=== PATIENT | male | born 1985 | race Asian ===

== ENCOUNTER 2022-10-25 22:45 | Outpatient (CLI) | payer MEDICARE, MEDICAID, SELFPAY | END 2022-10-25 22:46 | disposition home or self-care (01) | LOC: AMB 10-28 23:34 | PROVIDERS: PCP Family Medicine; Visit Provider Emergency Medicine Emergency Medical Services | DX: F29 Unspecified psychosis not due to a substance or known physiological condition (principal) | CPT/HCPCS: A0425; A0429 ==

== ENCOUNTER 2023-07-17 22:58 | Emergency (ER) | payer MEDICARE, MEDICAID, SELFPAY ==
[2023-07-17 23:04] VITALS: BP 112/69; PULSE 87; RESP 20; TEMP 36.7; O2SAT 99; BMI 24.2
--- NOTE | 2023-07-17 23:24 | ED.EAR ---
HPI - Ear Problem General Chief complaint: Ear/Nose/Throat Problem Stated complaint: pain in ear, possible puncture Time Seen by Provider: 07/17/23 23:04 History of Present Illness HPI Narrative: This 38-year-old male comes in with possibility of a injury to his tympanic membranes. He states that he was wrestling with a friend and he himself decided to put toothpicks in each ear canal. He reports pain in his ears, right greater than left. He does not report any drainage from either ear. Related Data Home Medications Medication Instructions Recorded Confirmed aripiprazole lauroxil 882 mg/3.2 882 mg IM Q4W 06/18/23 07/17/23 mL suspension, ext.rel. IM syringe (Aristada) cetirizine 10 mg tablet 10 mg PO QDAY PRN 06/18/23 07/17/23 cholecalciferol (vitamin D3) 25 25 mcg PO QDAY 06/18/23 07/17/23 mcg (1,000 unit) capsule clonidine HCl 0.2 mg tablet 0.2 mg PO BID 06/18/23 07/17/23 lamotrigine 200 mg tablet 200 mg PO QDAY 06/18/23 07/17/23 (Lamictal) pantoprazole 40 mg tablet,delayed 40 mg PO QDAY 06/18/23 07/17/23 release trazodone 50 mg tablet 50 mg PO QHS PRN 06/18/23 07/17/23 desvenlafaxine succinate 50 mg 50 mg PO DAILY 07/17/23 07/17/23 tablet,extended release 24 hr Allergies Allergy/AdvReac Type Severity Reaction Status Date / Time No Known Drug Allergies Allergy Verified 07/17/23 23:09 Review of Systems Status of ROS: Reports: 10 or more systems reviewed and unremarkable except as noted in History and below Narrative: Constitutional: No fevers, no weight gain or loss. Eyes: No discharge. No vision changes. HENT: No congestion, no sore throat. Ear pain, right greater than left. Cardiovascular: No chest pain, no palpitations. Respiratory: No shortness of breath, no wheezes, no cough. Gastrointestinal: No abdominal pain, no vomiting, no diarrhea. Genitourinary: No dysuria, no hematuria. Musculoskeletal: Normal range of motion. Skin: No rashes, no pruritis. Neurological: No dizziness, weakness, sensory change, speech change. Endo/Heme/Allergies: No bruising or bleeding. No polydipsia. Pysch: no suicidality, no anxiety, no insomnia. All other systems reviewed and are negative. PFSH PFSH Social History Little interest or pleasure in doing things: several days Feeling down, depressed, or hopeless: several days Exam Narrative: Exam Narrative: Constitutional: Well-developed, well-nourished, no acute distress. HEENT: Normocephalic, atraumatic. Left tympanic membrane is intact but has dullness and possibility of infection. Right tympanic membrane is ruptured due to trauma. There is no active bleeding or drainage. Neck: Normal range of motion. Nontender. Supple. Heart: Regular. No murmurs. Normal rate. Intact distal pulses. Lungs: Clear to auscultation. No chest discomfort. No wheezes, rhonchi, or rales. Abdomen: Normal bowel sounds. Nontender. No rebound tenderness. Genitalia: Deferred. Back: No midline tenderness. Normal range of motion. Extremities: Normal range of motion. No injury. Skin: Intact. No rash. Warm. No erythema or pallor. Neurologic: No altered sensation. No weakness. Alert and oriented. Psychiatric: No suicidality. No anxiety or depression. No insomnia. Nursing notes and vitals signs are reviewed. Const: Vital Signs, click to edit/add: Vital Signs - 24 hr 07/17/23 23:04 Temperature 98.0 F Pulse Rate [Right Pulse Oximeter] 87 Respiratory Rate 20 Blood Pressure [Ri ght Upper Arm] 112/69 Pulse Oximetry 99 Oxygen Delivery Me thod Room Air Course Vital Signs Vital signs: Initial Vital Signs Temperature 98.0 F 07/17/23 23:04 Temperature Source Temporal Artery Scan 07/17/23 23:04 Pulse Rate 87 07/17/23 23:04 Respiratory Rate 20 07/17/23 23:04 Blood Pressure 112/69 07/17/23 23:04 Blood Pressure Mean 83 07/17/23 23:04 Blood Pressure Position Sitting 07/17/23 23:04 Pulse Oximetry 99 07/17/23 23:04 Oxygen Delivery Method Room Air 07/17/23 23:04 Vital Signs Temperature 98.0 F 07/17/23 23:04 Pulse Rate 87 07/17/23 23:04 Respiratory Rate 20 07/17/23 23:04 Blood Pressure 112/69 07/17/23 23:04 Pulse Oximetry 99 07/17/23 23:04 Oxygen Delivery Method Room Air 07/17/23 23:04 Temperature 98.0 F 07/17/23 23:04 Pulse Rate 87 07/17/23 23:04 Respiratory Rate 20 07/17/23 23:04 Blood Pressure 112/69 07/17/23 23:04 Pulse Oximetry 99 07/17/23 23:04 Oxygen Delivery Method Room Air 07/17/23 23:04 Medical Decision Making MDM Narrative Medical decision making narrative: This patient comes in with suspicion of trauma to his tympanic membranes. The left tympanic membrane has no sign of trauma but there is possibility of infection. The right tympanic membrane is ruptured as he reports that he had toothpicks in each ear canal when he was wrestling with a friend!! I advised the patient to follow-up with ear nose and throat clinic. He is able to hear out of each ear. The patient did receive a prescription for amoxicillin. I advised him to use [id number] medicines also as needed for pain relief. Discharge Plan Discharge Clinical Impression: Rupture of right tympanic membrane, Otitis media Patient Disposition: Home, Self-Care Condition: Unchanged Additional Instructions: Take medications as prescribed. Use [id number] medicines also as needed and directed. [facility]. Call [phone] for appointment. Return if worsening. Prescriptions: No Action lamotrigine [Lamictal] 200 mg tablet 200 mg PO QDAY Aristada 882 mg/3.2 mL suspension,extended rel syring 882 mg IM Q4W cetirizine 10 mg tablet 10 mg PO QDAY PRN cholecalciferol (vitamin D3) 25 mcg (1,000 unit) capsule 25 mcg PO QDAY clonidine HCl 0.2 mg tablet 0.2 mg PO BID pantoprazole 40 mg tablet,delayed release (DR/EC) 40 mg PO QDAY trazodone 50 mg tablet 50 mg PO QHS PRN desvenlafaxine succinate 50 mg tablet extended release 24 hr 50 mg PO DAILY Follow Up/Referrals: Provider,Not a Local [Primary Care Provider] - Stand Alone [facility] Instructions
[2023-07-17 23:45] VITALS: BP 115/70; PULSE 80; RESP 20; TEMP 36.7; O2SAT 99
[2023-07-17 23:46] VITALS: BP 115/70; PULSE 80; RESP 20; TEMP 36.7
== END 2023-07-17 23:46 | disposition home or self-care (01) ==
LOC: ED 23:40
PROVIDERS: Emergency Provider Emergency Medicine Emergency Medical Services
DX: H66.91 Otitis media, unspecified, right ear (principal); H72.91 Unspecified perforation of tympanic membrane, right ear
CPT/HCPCS: 99283; 99284